=== PATIENT | female | born 1990 | race Hispanic/Latino ===

== ENCOUNTER 2017-06-17 01:04 | Emergency (ER) | payer MEDICAID, OTHER ==
[2017-06-17] MEDS ORDERED: EPINEPHRINE 1 MG/ML AMPULE ONE (01:37)
[2017-06-17] MEDS ORDERED: METHYLPREDNISOLONE SOD SUCC 125MG/2ML VIAL ONE (01:37)
[2017-06-17] MEDS ORDERED: DIPHENHYDRAMINE HCL 25 MG CAPSULE ONE (01:37)
[2017-06-17] MEDS ORDERED: FAMOTIDINE 20MG TAB 20 MG TAB ONE (01:37)
== END 2017-06-17 04:19 | disposition home or self-care (01) ==
LOC: EDH 01:04
DX: T88.6XXA Anaphylactic reaction due to adverse effect of correct drug or medicament properly administered, initial encounter (principal); T50.995A Adverse effect of other drugs, medicaments and biological substances, initial encounter; R05 Cough; Z88.6 Allergy status to analgesic agent; Y92.89 Other specified places as the place of occurrence of the external cause
CPT/HCPCS: 81025; 94761; 96372 ×2; 99284; J0171; J2930; Q0163

== ENCOUNTER → 2018-02-13 | Outpatient (CLI) | payer MEDICAID | END | disposition home or self-care (01) | LOC: LAB 09:44 | PROVIDERS: ATTEND Obstetrics & Gynecology | DX: N94.6 Dysmenorrhea, unspecified (principal); I10 Essential (primary) hypertension; E78.5 Hyperlipidemia, unspecified | CPT/HCPCS: 36415; 84702 ==

== ENCOUNTER → 2018-02-15 | Outpatient (CLI) | payer MEDICAID ==
[~2018-02-15] MED LIST: ISOVUE-M 200 20 ML VIAL IT ONE
== END | disposition home or self-care (01) ==
LOC: RAH 08:53
PROVIDERS: ATTEND Obstetrics & Gynecology
DX: N94.6 Dysmenorrhea, unspecified (principal)
CPT/HCPCS: 58340; 74740; Q9966

== ENCOUNTER 2021-01-07 09:48 | Observation (INO) | payer MEDICAID ==
[~2021-01-07] VITALS: Ht 160 cm; Wt 83.5 kg
[2021-01-07 09:49] VITALS: BP 130/80
[2021-01-07 10:39] LABS: APPEARANCE,URINE Clear (CLEAR); BILIRUBIN,URINE Negative (NEGATIVE); COLOR,URINE Yellow (YELLOW); GLUCOSE, URINE (UA) Negative (NEGATIVE); KETONES,URINE Negative (NEGATIVE); LEUKOCYTE ESTERASE ,URINE Moderate (NEGATIVE); NITRATE,URINE Negative (NEGATIVE); OCCULT BLOOD,URINE Negative (NEGATIVE); PH,URINE 6.5 (5.0-8.0); PROTEIN,URINE Negative (NEGATIVE)
[2021-01-07 10:55] LABS: BACTERIA,URINE Many /HPF (None Seen); MUCUS,URINE Few LPF (None Seen); RBC,URINE 0-1 /HPF (0-1); SQUAMOUS EPITHELIAL CELL,UR Moderate /HPF (0-2)
== END 2021-01-07 11:20 | disposition home or self-care (01) ==
LOC: EDH 09:48 → LDH 09:49
PROVIDERS: ADMIT Obstetrics & Gynecology; ATTEND Obstetrics & Gynecology
DX: O36.8120 Decreased fetal movements, second trimester, not applicable or unspecified (principal); Z20.822 Contact with and (suspected) exposure to COVID-19; O26.893 Other specified pregnancy related conditions, third trimester; R51.9 Headache, unspecified; O99.512 Diseases of the respiratory system complicating pregnancy, second trimester; J02.9 Acute pharyngitis, unspecified; R09.81 Nasal congestion; Z90.49 Acquired absence of other specified parts of digestive tract; Z3A.25 25 weeks gestation of pregnancy; Z79.899 Other long term (current) drug therapy
CPT/HCPCS: 59025; 81001; 87088; 87635; G0378; G0379